=== PATIENT | female | born 1960 | race Caucasian/White ===

== ENCOUNTER 2019-09-22 16:43 | Outpatient (CLI) | payer OTHER, SELFPAY ==
--- NOTE | ~2019-09-22 | MM_ITS ---
EXAMINATION: MM screening tuan BI w aditya HISTORY: Screening mammogram TECHNIQUE: Craniocaudal and mediolateral oblique 3-D tomosynthesis images were obtained and synthetic 2-D images were generated. CAD analysis was submitted and interpreted. COMPARISON: 09/03/2017 bilateral digital screening mammogram BREAST PARENCHYMAL COMPOSITION: There are scattered areas of fibroglandular density. FINDINGS: There is no evidence of suspicious mass, calcification, or architectural distortion to sugg est malignancy in either breast. There has been no suspicious interval change. IMPRESSION: 1. No mammographic evidence of malignancy. 2. Recommend routine screening mammography in one year. BI-RADS Category 1: Negative Reviewed, dictated and finalized at location A. ESTATE LOAN PROCESSOR
== END 2019-09-22 16:44 | disposition home or self-care (01) ==
LOC: ANHIMG 16:48
DX: Z12.31 Encounter for screening mammogram for malignant neoplasm of breast (principal)
CPT/HCPCS: 77063; 77067

== ENCOUNTER 2020-12-11 15:50 | Outpatient (CLI) | payer OTHER, SELFPAY ==
--- NOTE | ~2020-12-11 | MM_ITS ---
EXAMINATION: MM screening tuan BI w aditya HISTORY: Screening TECHNIQUE: Craniocaudal and mediolateral oblique 3-D tomosynthesis images were obtained and synthetic 2-D images were generated. CAD analysis was submitted and interpreted. COMPARISON: Comparison to multiple prior studies sequentially, with oldest reviewed study dated 09/03. BREAST PARENCHYMAL COMPOSITION: There are scattered areas of fibroglandular density. FINDINGS: There is no evidence of suspicious mass, calcification, or architectural distortion to sugg est malignancy in either breast. There has been no suspicious interval change. IMPRESSION: 1. No mammographic evidence of malignancy. 2. Recommend routine screening mammography in one year. BI-RADS Category 1: Negative Reviewed, dictated and finalized at location A.
== END 2020-12-11 15:51 | disposition home or self-care (01) ==
PROVIDERS: Visit Provider Student in an Organized Health Care Education/Training Program
DX: Z12.31 Encounter for screening mammogram for malignant neoplasm of breast (principal)
CPT/HCPCS: 77063; 77067

== ENCOUNTER 2022-01-03 07:48 | Outpatient (CLI) | payer OTHER, SELFPAY ==
--- NOTE | ~2022-01-03 | MM_ITS ---
EXAMINATION: MM screening tuan BI w aditya HISTORY: Screening mammogram TECHNIQUE: Craniocaudal and mediolateral oblique 3-D tomosynthesis images were obtained and synthetic 2-D images were generated. CAD analysis was submitted and interpreted. COMPARISON: 12/2020, 09/22/2019, 09/03/2017 bilateral screening mammogram examinations BREAST PARENCHYMAL COMPOSITION: There are scattered areas of fibroglandular density. FINDINGS: There is no evidence of suspicious mass, calcification, or architectural distortion to sugg est malignancy in either breast. There has been no suspicious interval change. IMPRESSION: 1. No mammographic evidence of malignancy. 2. Recommend routine screening mammography in one year. BI-RADS Category 1: Negative Reviewed, dictated and finalized at location A.
== END 2022-01-03 07:49 | disposition home or self-care (01) ==
DX: Z12.31 Encounter for screening mammogram for malignant neoplasm of breast (principal)
CPT/HCPCS: 77063; 77067

== ENCOUNTER 2022-10-03 13:47 | Emergency (ER) | payer OTHER, SELFPAY ==
[2022-10-03] VITALS (8 sets, daily range): BP systolic 112–130; BP diastolic 64–73; PULSE 60–85; RESP 12–20; TEMP 36.8; O2SAT 99–100
--- NOTE | ~2022-10-03 | XR_ITS ---
EXAMINATION: XR chest 2V 10/03/2022 14:11 INDICATION: Chest pain PROCEDURE: 2 view chest COMPARISON: 11/08/2017 FINDINGS: The lungs are clear. The cardiomediastinal silhouette is within normal limits. There are no pleural effusions. There is no pneumothorax suspected. IMPRESSION: 1: NO ACUTE CARDIOPULMONARY DISEASE. Reviewed, dictated and finalized at location B. KER METAL BASE
--- NOTE | 2022-10-03 13:50 | ECG_ITS ---
Measurements Intervals [place] Rate: 79 P: 9 [place]: 125 QRS: 17 QRSD: 89 T: 49 QT: 368 QTc: 423 Interpretive Statements SINUS RHYTHM MODERATE ST DEPRESSION [0.05+ mV ST DEPRESSION] ABNORMAL ECG NO PREVIOUS ECG AVAILABLE FOR COMPARISON Electronically Signed On 10-03-2022 15:41:54 CREDIT CARD ANALYST by Keaton Weeks M.D.
[2022-10-03 14:14] LABS: Basophils Percent Auto 0.7 % (0.2-1.2); Eosinophils Absolute Auto 0.1 K/mm3 (0-0.3); Eosinophils Percent Auto 2.2 % (0-4.4); Hematocrit 42.2 % (37.0-47.0); Hemoglobin 13.9 g/dL (12.0-15.0); Immature Granulocyte Absolute 0.02 K/mm3 (0.00-0.031); Immature Granulocyte Percent A 0.4 % (0-0.5); Lymphocytes Absolute Auto 1.38 K/mm3 (0.9-3.2); Lymphocytes Percent Auto 25.1 % (18.3-44.2); Mean Corpuscular HGB Conc 32.9 g/dl (32-36); Mean Corpuscular Hemoglobin 29.1 pg (26-34); Mean Corpuscular Volume 88.5 fl (80-100); Mean Platelet Volume 10.4 fl (7.4-10.4); Monocytes Absolute Auto 0.3 K/mm3 (0.1-0.6); Neutrophils Absolute Auto 3.6 K/mm3 (1.3-6.7); Neutrophils Percent Auto 65.6 % (45.5-73.1); Platelet Count Result 387 k/mm3 (150-375); Red Blood Count 4.77 M/mm3 (4.2-5.4); Red Cell Distribution Width 12.9 % (11.5-14.5); White Blood Count 5.5 K/mm3 (4.5-10.0)
[2022-10-03 14:24] LABS: Prothrombin Time 12.8 Seconds (11.1-14.7)
[2022-10-03 14:25] LABS: Partial Thromboplastin Time 27.9 SECONDS (22.3-36.8)
[2022-10-03 14:28] LABS: Alanine Aminotransferase 22 U/L (6-35); Albumin Level 4.8 g/dL (3.5-5.1); Alkaline Phosphatase 74 U/L (38-126); Anion Gap 9 mmol/L (8-16); Aspartate Amino Transferase 22 U/L (14-36); Bilirubin,Total 0.8 mg/dL (0.2-1.3); Blood Urea Nitrogen 11 mg/dL (7-17); Calcium 9.7 mg/dL (8.4-10.2); Carbon Dioxide 25 mmol/L (22-30); Chloride 103 mmol/L (98-107); Estimated CRCL calculation 96 ml/min; Estimated Glomerular Filt Rate > 60; Glucose 103 mg/dL (65-110); Lipase 63 U/L (23-300); Potassium 3.3 mmol/L (3.4-5.0); Sodium 137 mmol/L (137-145)
[2022-10-03 14:40] LABS: Troponin I < 0.012 ng/mL (0.000-0.034)
--- NOTE | 2022-10-03 16:16 | ED.CHESTPAIN ---
HPI - Chest Pain General Chief Complaint: Chest Pain Stated Complaint: fluttering under left breast Time Seen by Provider: 10/03/22 15:47 History of Present Illness HPI narrative: Patient is a 62-year-old female who presents ER with some chest discomfort. She reports 2 times today she had fluttering that was occurring beneath her left breast. She put her hand that she could feel it moving. No radiation of discomfort into his shoulder or jaw or back. No dyspnea. Patient reports she became nervous because she had COVID diagnosed 15 days ago. She has had a couple waves of feeling very tired. She has been feeling slightly tired today. No runny nose or sore throat at this time. No productive cough. No history of heart disease. No high blood pressure/cholesterol/diabetes. Related Data Allergies Allergy/AdvReac Type Severity Reaction Status Date / Time No Known Allergies Allergy Verified 10/03/22 16:19 Review of Systems Review of Systems: All systems reviewed & are unremarkable except as noted in HPI and below Constitutional: Constitutional: Denies chills, Denies fatigue and Denies fever(s) ENT: Denies nasal congestion and Denies sore throat Cardiovascular: Cardiovascular: Reports chest pain (Pulmflutters), Denies rapid heart rate and Denies radiating jaw, neck or arm pain Respiratory: Respiratory: Denies cough and Denies dyspnea Gastrointestinal: Gastrointestinal: Denies abdominal pain, Denies nausea and Denies vomiting Exam Narrative: GENERAL: Well-appearing, well-nourished, and in no acute distress. HEAD: Normocephalic, atraumatic. NECK: Supple. CHEST: Clear to auscultation. No respiratory distress. HEART: Regular rate and rhythm. Normal peripheral pulses. ABDOMEN: Soft, nontender, nondistended. EXTREMITIES: Normal range of motion. No edema. SKIN: Warm, dry, no rash. NEURO: Alert and oriented x3. PSYCH: Normal mood and affect. Course Course Emergency Course: Patient resting comfortably. Informed of results. Symptoms are quite atypical. Recommend follow-up with PCP. Also discussed slight ST segment depression on EKG. Recommend she get an outpatient stress test discussed this with her PCP. She verbalized understanding of this. Vital Signs Vital signs: Vital Signs Temperature 98.2 F 10/03/22 13:58 Pulse Rate 85 10/03/22 13:58 Respiratory Rate 16 10/03/22 13:58 Blood Pressure 130/69 10/03/22 13:58 Pulse Oximetry 100 10/03/22 13:58 Oxygen Delivery Room Air 10/03/22 13:58 Temperature 98.2 F 10/03/22 13:58 Pulse Rate 60 10/03/22 17:32 Respiratory Rate 18 10/03/22 17:32 Blood Pressure 114/64 10/03/22 17:32 Pulse Oximetry 100 10/03/22 17:32 Oxygen Delivery Room Air 10/03/22 13:58 MDM - Chest Pain Lab Data 10/03/22 13:57 10/03/22 13:57 Labs: Lab Results 10/03/22 10/03/22 10/03/22 Range/Units 13:57 13:57 13:57 WBC 5.5 (4.5-10.0) K/mm3 RBC 4.77 (4.2-5.4) M/mm3 Hgb 13.9 (12.0-15.0) g/dL Hct 42.2 (37.0-47.0) % MCV 88.5 (80-100) fl MCH 29.1 (26-34) pg MCHC 32.9 (32-36) g/dl RDW 12.9 (11.5-14.5) % Plt Count 387 H (150-375) k/mm3 MPV 10.4 (7.4-10.4) fl Immature Gran % (Auto) 0.4 (0-0.5) % Neut % (Auto) 65.6 (45.5-73.1) % Lymph % (Auto) 25.1 (18.3-44.2) % Park % (Auto) 6.0 (2.6-8.5) % Eos % (Auto) 2.2 (0-4.4) % Baso % (Auto) 0.7 (0.2-1.2) % Lymph # (Auto) 1.38 (0.9-3.2) K/mm3 Park # (Auto) 0.3 (0.1-0.6) K/mm3 Eos # (Auto) 0.1 (0-0.3) K/mm3 Baso # (Auto) 0.0 (0.0-0.1) K/mm3 Abs Immat Gran (auto) 0.02 (0.00-0.031) K/mm3 Absolute Neuts (auto) 3.6 (1.3-6.7) K/mm3 Absolute Nucleated RBC 0.0 (0.0-0.012) K/mm3 Nucleated RBC % 0.0 (0.0-0.2) % PT 12.8 (11.1-14.7) Seconds INR 1.0 APTT 27.9 (22.3-36.8) SECONDS Sodium 137 (137-145) mmol/L Potassium 3.3 L (3.4-5.0) mmol/L Chloride 103 (98-
[2022-10-03] MEDS: ASPIRIN 81 MG CHEWABLE TABLET 324 MG PO (16:20)
[2022-10-03 17:41] LABS: Troponin I < 0.012 ng/mL (0.000-0.034)
== END 2022-10-03 18:52 | disposition home or self-care (01) ==
PROVIDERS: Emergency Provider Emergency Medicine; PCP Student in an Organized Health Care Education/Training Program
DX: R07.9 Chest pain, unspecified (principal); Z86.16 Personal history of COVID-19; R94.31 Abnormal electrocardiogram [ECG] [EKG]
CPT/HCPCS: 36415; 71046; 80053; 83690; 84484; 85025; 85610; 85730; 93005; 99284; A9270

== ENCOUNTER 2023-03-06 07:11 | Outpatient (CLI) | payer OTHER, SELFPAY ==
--- NOTE | ~2023-03-06 | MM_ITS ---
EXAMINATION: MM screening tuan BI w aditya HISTORY: Screening mammogram TECHNIQUE: Craniocaudal and mediolateral oblique 3-D tomosynthesis images were obtained and synthetic 2-D images were generated. CAD analysis was submitted and interpreted. COMPARISON: 01/03/2022, 12/11/2020, 09/22/2019 BREAST PARENCHYMAL COMPOSITION:There are scattered areas of fibroglandular density. FINDINGS: No suspicious mass, calcification, or architectural distortion are identified in either leena ast to suggest malignancy. There has been no suspicious interval change. IMPRESSION: No mammographic evidence of malignancy. Recommend routine screening mammography in one year. BI-RADS Category 1: Negative Reviewed, dictated and finalized at location .
== END 2023-03-06 07:12 | disposition home or self-care (01) ==
PROVIDERS: PCP Student in an Organized Health Care Education/Training Program
DX: Z12.31 Encounter for screening mammogram for malignant neoplasm of breast (principal)
CPT/HCPCS: 77063; 77067

== ENCOUNTER 2023-07-10 00:46 | Day surgery (SDC) | payer OTHER, SELFPAY ==
[2023-06-24 08:25] VITALS: BMI 28.1
--- NOTE | 2023-07-08 09:01 | SUR.PREOP ---
Patient called regarding upcoming procedure. Reviewed preop instructions, appointment times, and procedure prep.
--- NOTE | 2023-07-09 12:00 | PM.HPGS ---
History of Present Illness History of Present Illness Consent: Risks, benefits, and alternatives have been discussed and questions answered. Patient agrees to proceed with procedure. Chief complaint: neoplasm screening Narrative: Rika Granados is a 63 year old female referred for colon cancer screening. She her last colonoscopy was 5 years ago. She has a history of polyps. Review of Systems Review of Systems: All systems reviewed & are unremarkable except as noted in HPI and below PMFSH Social History Social History Smoking status: Never smoker Alcohol intake: never Substance use: never Substance use type: does not use Living arrangements: with family Spiritual care concerns: No Meds Home Medications and Allergies Home Medications Medication Instructions Recorded Confirmed Type No Home Medications 06/24/23 06/24/23 History Allergies Allergy/AdvReac Type Severity Reaction Status Date / Time No Known Allergies Allergy Verified 06/24/23 08:24 Exam Const: General: alert Orientation/consciousness: patient oriented x3 Resp: Auscultation: clear to auscultation bilaterally Cardio: Rhythm: regular rhythm GI: GI Palp: Yes Soft to palpation and No Tenderness to palpation present (GI) Neuro: General: patient oriented x3 Assessment and Plan Assessment and plan (1) Colon cancer screening: Code(s): Z12.11 - Encounter for screening for malignant neoplasm of colon Status: Acute Assessment and Plan: Colonoscopy with possible biopsy or polypectomy or cautery or injection of substances.
[2023-07-10 06:20] VITALS: BP 119/71; PULSE 86; RESP 18; TEMP 36; O2SAT 99; BMI 28.2
[2023-07-10] MEDS: LACTATED RINGERS 1,000 ML 150 ML IV CONT (06:31)
--- NOTE | 2023-07-10 07:16 | WPDANESEPPF ---
Anes - Initial Pre Proc Eval Procedure: Operation Date: 07/10/23 07:30 Proposed Procedures p Screening Colonoscopy - Vitor Burt MD Date/Time: 07/10/23 07:16 Surgeon: Vitor Burt MD Pre Op Diagnosis: neoplasm screening Patient Data Age: 63 Gender: F Height: 1.73 m Weight: 84.2 kg Last Vital Signs Temp 96.8 F L 07/10/23 06:20 Pulse 86 07/10/23 06:20 Resp 18 07/10/23 06:20 BP 119/71 07/10/23 06:20 Pulse Ox 99 07/10/23 06:20 O2 Del Method Room Air 07/10/23 06:20 Allergies Allergy/AdvReac Type Severity Reaction Status Date / Time No Known Allergies Allergy Verified 06/24/23 08:24 Home Medications Medication Instructions Recorded Confirmed Type No Home Medications 06/24/23 06/24/23 History Patient hx anesthesia problems: none Family hx anesthesia problems: none Results Review: All pre-operative results and documents have been reviewed as part of the pre-operative evaluation. [facility] Social History Social History Smoking status: Never smoker Alcohol intake: never Substance use: never Substance use type: does not use Living arrangements: with family Spiritual care concerns: No Anes - Eval Final PreProcedure Day of Procedure 07/10/23 07:16 Patient weight: normal Heart: regular rate and rhythm Lungs: clear to auscultation Airway: Mallampati scale class II Neurological: alert and oriented Last oral intake: >/= 8 hours ASA classification: II Emergent: no Anesthetic plan: proceed Anesthesia type and monitoring: general GIVS and standard monitoring Results Review: All pre-operative results and documents have been reviewed as part of the pre-operative evaluation. Informed Consent: The patient's anesthetic plan and its attendant risks and benefits were discussed with the patient/family/POA. Questions were solicited and answers provided to the satisfaction of the patient/family/POA.
[2023-07-10 07:41] VITALS: BP 82/52; PULSE 67; RESP 20; O2SAT 95
[2023-07-10 07:51] VITALS: BP 103/58; PULSE 69; RESP 20; O2SAT 99
[2023-07-10 08:01] VITALS: BP 110/73; PULSE 67; RESP 20; O2SAT 100
== END 2023-07-10 08:07 | disposition home or self-care (01) ==
PROVIDERS: PCP Student in an Organized Health Care Education/Training Program; Visit Provider Internal Medicine Gastroenterology
PROC: 0DJD8ZZ Inspection of Lower Intestinal Tract, Via Natural or Artificial Opening Endoscopic (ICD-10-PCS; CPT 45378; principal; 2023-07-10 07:30)
DX: Z12.11 Encounter for screening for malignant neoplasm of colon (principal); Z86.010 Personal history of colon polyps
CPT/HCPCS: 45378; J2704; J7120

== ENCOUNTER 2024-04-29 14:42 | Outpatient (CLI) | payer OTHER, SELFPAY ==
--- NOTE | ~2024-04-29 | MM_ITS ---
EXAMINATION: MM screening tuan BI w aditya HISTORY: Screening TECHNIQUE: Craniocaudal and mediolateral oblique 3-D tomosynthesis images were obtained and synthetic 2-D images were generated. CAD analysis was submitted and interpreted. COMPARISON: Comparison to multiple prior studies sequentially, with oldest reviewed study dated 09/03. BREAST PARENCHYMAL COMPOSITION: Not dense: There are scattered areas of fibroglandular density. FINDINGS: There is no evidence of suspicious mass, calcification, or architectural distortion to sugg est malignancy in either breast. There has been no suspicious interval change. IMPRESSION: 1. No mammographic evidence of malignancy. 2. Recommend routine screening mammography in one year. BI-RADS Category 1: Negative Reviewed, dictated and finalized at location B.
== END 2024-04-29 14:43 | disposition home or self-care (01) ==
LOC: ANHIMG 14:44
PROVIDERS: PCP Student in an Organized Health Care Education/Training Program
DX: Z12.31 Encounter for screening mammogram for malignant neoplasm of breast (principal)
CPT/HCPCS: 77063; 77067

== ENCOUNTER 2025-05-26 07:36 | Outpatient (CLI) | payer OTHER, SELFPAY ==
--- NOTE | ~2025-05-26 | MM_ITS ---
EXAMINATION: MM screening tuan BI w aditya HISTORY: Screening TECHNIQUE: Craniocaudal and mediolateral oblique 3-D tomosynthesis images were obtained and synthetic 2-D images were generated. CAD analysis was submitted and interpreted. COMPARISON: 03/06/2023 BREAST PARENCHYMAL COMPOSITION: There are scattered areas of fibroglandular density. FINDINGS: There is no evidence of suspicious mass, calcification, or architectural distortion to suggest malignancy. There has been no suspicious interval change. IMPRESSION: 1. No mammographic evidence of malignancy. Recommend routine screening mammography in one year. BI-RADS Category 2: Benign finding(s) Reviewed, dictated and finalized at location Q. IMPRESSION: 1. No mammographic evidence of malignancy. Recommend routine screening mammogra phy in one year. BI-RADS Category 2: Benign finding(s)
--- OUTSIDE RECORDS SUMMARY | 2025-05-26 07:40 | XMS_ITS | Encounter Summary ---
Author Organization [facility] Address [address] [place] [id number] Care Team Providers Care Recycling Worker Name Role Phone Mayito Tinoco DO Primary Care Provider + Encounter Details Date Type Department Care Team (Late Contact Info) Description 03/13/2023 [place] [employer] Message Enc [facility] Family & Internal [address] [phone] Mayito Tinoco DO [address] [place] [address] [phone] Mammogram Results Social History Tobacco Use Types Packs/Day Years Used Date Smoking Tobacco: Never Smokeless Tobacco: Never Alcohol Use Standard Drinks/Week Comments No 0 (1 standard drink = 0.6 oz pur e alcohol) AUDIT-C Answer Date Recorded Frequency of Alcohol Consumption Never 03/15/2019 Average Number of Drinks Not on file 019 Frequency of Binge Drinking Not on file 01/2019 PHQ-2 Answer Date Recorded PHQ-2 Score - If the patient scores above 3, please move on to questions 3-9 0 03/28/2022 Comments No Sex and Gender Information Value Date Recorded Sex Assigned at Not on file Legal Sex Female 10:10 AM CDT Gender Identity Not on file Sexual Orientation Not on file 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 Not on file Not on file documented as of this encounter Plan of Treatment Upcoming Encounters Date Type Department Care Team (Late Contact Info) Description 06/16/2025 7:20 AM MINK SLICER Office Visit [facility] Family & Internal Medicine [address] [phone] Mayito Tinoco DO [address] [place] [phone] documented as of this encounter Visit Diagnoses Not on filedocumented in this encounter Additional Health Concerns Assessment Noted Time PHQ-9 Depression Total Score: 2 11/16/19 21 11:20 AM CDT documented as of this encounter Care Teams Recycling Worker Relationship Specialty Start Date End Date Mayito Tinoco DO [address] [place] [phone] PCP - General FAMILY PRACTICE 01/05/19 documented as of this encounter
--- OUTSIDE RECORDS SUMMARY | 2025-05-26 07:40 | XMS_ITS | Encounter Summary ---
Author Organization [facility] Address [address] [place] [id number] Care Team Providers Care Press Secretary Name Role Phone Mayito Tinoco Primary Care Provider + Encounter Details Date Type Department Care Team (Late Contact Info) Description 08/29/2021 [place] [employer] Message Enc [facility] Family & Internal Medicine [address] [phone] Yoanna Pierce APNP [address] [place] [address] [phone] Right Eyelid swollen Social History Tobacco Use Types Packs/Day Years [...] please move on to questions 3-9 0 11/15/2020 Comments No Sex and Gender Information Value Date Recorded Sex Assigned at Not on file Legal Sex Female 10:10 AM CDT Gender Identity Not on file Sexual Orientation Not on file 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 Not on file Not on file documented as of this encounter Plan of Treatment Upcoming Encounters Date Type Department Care Team (Late Contact Info) Description 06/16/2025 7:20 AM VICE PRESIDENT SALES Office Visit [facility] Family & Internal Medicine [address] [phone] Mayito Tinoco DO [address] [place] [phone] documented as of this encounter Visit Diagnoses Not on filedocumented in this encounter Additional Health Concerns Assessment Noted Time PHQ-9 Depression Total Score: 2 11/16/19 21 11:20 AM CDT documented as of this encounter Care Teams Press Secretary Relationship Specialty Start Date End Date Mayito Tinoco DO [address] [place] [phone] PCP - General FAMILY PRACTICE 01/05/19 documented as of this encounter
--- OUTSIDE RECORDS SUMMARY | 2025-05-26 07:40 | XMS_ITS | Clinical Summary ---
Author Organization [facility] Address [address] [place] [address] Care Team Providers Care Expander Machine Operator Name Role Phone Mayito Tinoco DO Primary Care Provider + Allergies No known active allergies Medications Multiple Vitamin (MULTIVITAMIN ADULT OR) Active Vitamin K, Phytonadione, 100 MCG Tab Active Vitamin D3 (CHOLECALCIFEROL ) 50 mcg tablet Take 1 tablet (2,000 Units total) by mouth daily. Active escitalopram (LEXAPRO) 20 MG tabletIndication s:Anxiety Take 1 tablet (20 mg total) by mouth daily. 30 tablet 2 04/21/2025 Active Active Problems Problem Noted Date Diagnosed Date Irritable bowel syndrome with diarrhea 0 Anxiety 03/06/2020 BMI 27.0-27.9,adult 03/06/2020 Resolved Problems Problem Noted Date Diagnosed Date Resolved Date Diarrhea 01/03/2020 03/28/2022 Colon polyps 03/15/2019 02/19/2024 Encounters Date Type Department Care Team Description 04/17/2025 Telephone [facility] Family & Internal Medicine [address] [phone] Mayito Tinoco DO Advice from Last 3 Months Immunizations Immunization Administration Dates Next Due AFLURIA QUAD >36 MONTHS (MUL TI-DOSE VIAL) 05/30/2019 Arexvy Respiratory Syncytial Virus (RSV, adjuvanted) 0.5 mL, PF 08/06/2023 Dtap (Acel-Immune) 04/12/2010 Dtp 04/12/2010 FLUCELVAX (ccIIV3, TRIVALENT, 0.5mL) 04/15/2024 Flulaval Quad (Multi-Dose Vial) 05/30/2018 Fluzone 6 Months+ Quad (0.5 mL Prefilled Syringe) 05/16/2020 Hepatitis B 10/11/2010,05/13/2010,04/12/2010 Influenza (Generic) 05/30/2019,05/30/2018,2013 Influenza Adult (Generic) 05/15/2023,,05/21/2021,2018,05/30/2018 Influenza Virus, Split 6-35 Mo 06/18/2012,2010,05/09/2010 MMR (MMRII) 03/15/2019 MODERNA COVID-19 BIVALENT (1 2+), MRNA, LNP-S, PF 05/02/2022 PFIZER COVID-19 (ECHEVERRIA CAP), MRNA, LNP-S, PF, 30 MCG/0.3 ML DEEPALI-SUCROSE, IM 12/06/2021 PFIZER COVID-19 (ORIGINAL FORMULATION, PURPLE CAP) mRNA, LNP-S, PF, 30 MCG/0.3 ML DOSE 06/07/2021,09/21/2020,08/31/2020 Shingrix 02/08/2021,12/04/2020 Td, Adsorbed, Preservative F ree, Adult Use, Lf Unspecified 04/12/2010 Tdap (Boostrix) 02/07/2019 Tdap (Generic) 02/07/2019,06/18/2012,04/10/2012 Family History Medical History Relation Comments Diabetes Brother 1 Hypertension Brother 2 Hypertension Brother 3 Diabetes Father Stroke Father Heart Disease Maternal Aunt 1 Heart Disease Maternal Aunt 2 CAD/stent No Known Problems Maternal Grandfather No Known Problems Maternal Grandmother Heart Disease Mother Hypertension Mother No Known Problems Paternal Grandfather No Known Problems Paternal Grandmother No Known Problems Sister Relation Status Comments Brother 1 Brother 2 Brother 3 Father Maternal Aunt 1 Maternal Aunt 2 Maternal Grandfather Maternal Grandmother Mother Paternal Grandfather Paternal Grandmother Sister Social History Tobacco Use Types Packs/Day Years Used Date Smoking Tobacco: Never Passive Smoke Exposure: Never Smokeless Tobacco: Never Alcohol Use Standard Drinks/Week Comments No 0 (1 standard drink = 0.6 oz pur e alcohol) AUDIT-C Answer Date Recorded Frequency of Alcohol Consumption Never 03/15/2019 Average Number of Drinks Not on file 019 Frequency of Binge Drinking Not on file 01/2019 PHQ-2 Answer Date Recorded Patient Health Questionnaire-2 Score 3 02/19/2024 Comments No Sex and Gender Information Value Date Recorded Sex Assigned at Not on file Legal Sex Female 10:10 AM CDT Gender Identity Not on file Sexual Orientation Not on file 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 Not on file Not on file Last Filed Vital Signs Vital Sign Reading Time Taken Comments Blood Pressure 120/78 04/22/2024 7:48 AM CDT Pulse 53 04/22/2024 7:48 AM CDT Temperature 36.4 C (97.5 F) 04/22/2024 7:48 AM CDT Respiratory Rate 16 04/22/2024 7:48 AM CDT Oxygen Saturation 98% 04/22/2024 7:48 AM CDT Inhaled Oxygen Concentration - - Weight 85.5 kg (188 lb 8 oz) 04/22/2024 7:48 AM CDT Height 172.7 cm (5' 8) 04/22/2024 7:48 AM CDT Body Mass Index 28.66 04/22/2024 7:48 AM CDT Plan of Treatment Upcoming Encounters Date Type Department Care Team (Late st Contact Info) Description 06/16/2025 7:20 AM PIPE LINER Office Visit [facility] Family & Internal Medicine [id number] [place] [phone] Mayito Tinoco, [address] [place] [address] Health Maintenance Due Date Last Done Comments Pneumococcal Vaccine: 50+ Years (1 of 1 - PCV) 2011 PHQ-2 (Physician [place]) 08/10/2024 02/19/2024 COVID-19 Vaccine ( season) 2025 05/15/2023, 05/02/2022, 12/06/2021, Additional history exists Annual Physical 04/22/2025 04/22/2024, 03/11, 03/28/2022, Additional history exists Mammogram Screening 04/29/2025 04/29/2024, 03/06/2023, 12/11/2020, Additional history exists Influenza Adult (#1) 2025 04/15/2024, 05/15/2023, 05/02/2022, Additional history exists Cervical Cancer Screening Pap Smear (Age 30 to 64) Every 3 Years 05/12/2027 05/12/2024, 09/15/2019 Colorectal Cancer Screening Colonoscopy (10 Years) 07/10/2028 07/10/2023 DTaP, Tdap and Td Vaccines (7 - Td or Tdap) 02/07/2029 02/07/2019, 02/07/2019, 06/18/2012, Additional history exists Cervical Cancer Screening Pap with HPV Testing (Age 30 to 64) Every 5 Years 05/12/2029 05/12/2024, 09/15/2019, 09/15/2019 Cervical Cancer Screening with HPV 05/12/2029 Zoster Vaccines Completed 02/08/2021, 12/04/2020 Hepatitis C Completed 03/26/2021 RSV Immunization or 60+ Years Completed 08/06/2023 Hepatitis A Vaccines Aged Out No long er eligible based on patient's age to complete this topic Meningococcal B Vaccine Aged Out No l onger eligible based on patient's age to complete this topic Meningococcal Vaccine Aged Out No esthela genie eligible based on patient's age to complete this topic RSV Immunizations Under 20 Months Aged Out No longer eligible based on patient's age to complete this topic Procedures Procedure Name Priority Date/Time Associated Diagnosis Comments MAMMOGRAM GENERIC (SCAN ORDER) 04/29/2024 COLONOSCOPY GENERIC (SCAN ORDER) 07/10/2023 HEPATITIS C ANTIBODY Routine 03/26/2021 12:34 PM CDT Encounter for preventative adult health care examination Need for hepatitis C screening test OUTSIDE CYTOPATH CERV/VAG INTERPRET (PAP) 09/15/2019 from Last 3 Months or Most Recently Relevant to Health Maintenance Results * MAMMOGRAM GENERIC (SCAN ORDER) (04/29/2024) Anatomical Region Laterality Modality Other 04/29/2024 [facility] Scanned SCANNING Final Resu lt * COLONOSCOPY GENERIC (07/10/2023) 07/10/2023 [facility] Scanned SCANNING Final Resu lt * HEPATITIS C ANTIBODY (03/26/2021 12:34 PM CDT) HEPATITIS C AB <0.1 0.0 - 0.9 s/co ratio [facility] 1 Comment: Negative: < 0.8 Indeterminate: 0.8 - 0.9 Positive: > 0.9 The CDC recommends that a positive HCV antibody result be followed up with a HCV Nucleic Acid Amplification test ([id number]). 03/26/2021 12:3 4 PM CDT 03/27/2021 Narrative [facility] - 03/27/2021 12:09 PM CDT Performed at: [facility] [id number] Double End Tenoner Operator: Alexander Alarcon PhD, Phone: [phone] Mayito Tinoco DO LABORATORY Final Re sult Performing Organization Address [facility] Co de Phone Number [facility] [address] [place] [address] [facility] 1 * PAP SMEAR WITH HPV (09/15/2019) 09/15/2019 [facility] Scanned SCANNING Final Resu lt from Last 3 Months or Most Recently Relevant to Health Maintenance Insurance AETNA [facility] AETNA Care Teams Expander Machine Operator Relationship Specialty Start Date End Date Mayito Tinoco DO [address] [place] [phone] PCP - General FAMILY PRACTICE 01/05/19
--- OUTSIDE RECORDS SUMMARY | 2025-05-26 07:40 | XMS_ITS | Clinical Summary ---
Author Organization [facility] Address [address] [place] [address] Care Team Providers Care Quiller Hand Name Role Phone Mayito Tinoco Dieudonne TEIXEIRA Primary Care Provider + Source Comments [facility],non-owned Affiliates and Associated Physician Practices is amultiple site organization consisting of ambulatory clinics and hospital sitesin [place], [place], [place] and [place]. This disclosure is being madepursuant to the Care Everywhere program and may not contain all information available regarding this patient. Last updated 18.[facility] Allergies No known active allergies Medications * Be aware that medications may not be up to date on this document. Alwaysverify current medications with the patient. escitalopram (Lexapro) 20 MG tablet Take 1 (one) tablet by mouth once daily 02/08/2024 Active Cholecalciferol 50 MCG (1999 UT) Take 1 (one) tablet by mouth once daily Active Vitamin K, Phytonadione, 100 MCG Active Active Problems No known active problems Immunizations Immunization Administration Dates Next Due INFLUENZA VACCINE 05/30/2019,05/30/2018 Family History Medical History Relation Name Comments CAD (Coronary Artery Disease) Father stoke Diabetes - Type 2 Father Hypertension Mother Cancer - Breast Paternal Aunt Relation Name Status Comments Father Mother Paternal Aunt Social History Tobacco Use Types Packs/Day Years Used Date Smoking Tobacco: Never Smokeless Tobacco: Never Tobacco Cessation:Counseling Given: Not Answered Alcohol Use Standard Drinks/Week Comments Never 0 (1 standard drink = 0.6 oz pur e alcohol) AUDIT-C Answer Date Recorded Frequency of Alcohol Consumption Never 09/15/2019 Average Number of Drinks Not on file 020 Frequency of Binge Drinking Not on file 01/2020 PHQ-2 Answer Date Recorded Patient Health Questionnaire-2 Score 0 05/06/2024 Comments No Sex and Gender Information Value Date Recorded Sex Assigned at Female 12/08/2022 1:06 PM CDT Legal Sex Female 6:14 AM ASSURANCE ANALYST Gender Identity Female 12/08/2022 1:06 PM CDT Sexual Orientation Straight 12/08/2022 1: 06 PM CDT Last Filed Vital Signs Vital Sign Reading Time Taken Comments Blood Pressure 130/78 05/12/2024 8:32 AM CDT Pulse 81 05/30/2022 11:27 AM CDT Temperature 37 C (98.6 F) 05/29/2017 4:54 PM CDT Respiratory Rate 16 05/29/2017 4:54 PM CDT Oxygen Saturation 98% 05/30/2022 11:27 AM CDT Inhaled Oxygen Concentration - - Weight 85.7 kg (189 lb) 05/12/2024 8:32 AM CDT Height 172.7 cm (5' 8) 05/12/2024 8:32 AM CDT Body Mass Index 28.74 05/12/2024 8:32 AM CDT Plan of Treatment Health Maintenance Due Date Last Done Comments COLOGUARD (AGES 45-75) - COLON CA SCREENING 1961 COLON MONITORING 1961 COLONOSCOPY - COLON CA SCREENING 1961 CT COLONOGRAPHY - COLON CA SCREENING 1961 Colorectal Cancer Screening 1961 FIT - COLON CA SCREENING 1961 FLEX SIG - COLON CA SCREENING 1961 HIV SCREENING 1976 DTAP/TDAP/TD VACCINES (1 - Tdap) 1980 PNEUMOCOCCAL VACCINE 50+ (1 of 1 - PCV) 2011 ZOSTER VACCINE (1 of 2) 2011 SCREENING FOR DIABETES 05/12/2024 6, 06/27/2015, 07/04/2014, Additional history exists DEPRESSION SCREENING 08/10/2024 05/12/2024 COVID-19 VACCINE ( season) 2025 05/15/2023, 05/02/2022, 12/06/2021, Additional history exists INFLUENZA VACCINE (#1) 2025 , 05/15/2023, 05/02/2022, Additional history exists MAMMOGRAM 04/29/2026 04/29/2024, 02/08, 03/06/2023, Additional history exists LIPID TESTING 04/22/2029 04/22/2024, 03/10, 03/17/2019, Additional history exists PAP with HPV 05/12/2029 05/12/2024, 09/15/2019 Respiratory Syncytial Virus (RSV) Vaccine Pt: or over 60 yrs (1 - 1-dose 75+ series) 2036 HEPATITIS C SCREENING Completed 03/26/2021 HEPATITIS B VACCINE Aged Out No longe r eligible based on patient's age to complete this topic HIB VACCINE Aged Out No longer eligi ble based on patient's age to complete this topic HPV VACCINE Aged Out No longer eligi ble based on patient's age to complete this topic MENINGOCOCCAL (Group B) VACCINE SHARED DECISION-MAKING Aged Out No longer eligible based on patient's age to complete this topic MENINGOCOCCAL GROUPS A/C/Y/W VACCINE Aged Out No longer eligible based on patient's age to complete this topic Procedures Procedure Name Priority Date/Time Associated Diagnosis Comments HPV DETECTION HIGH RISK BRENDON Routine 05/12/2024 11:53 AM CDT Well woman exam MAMMOGRAM Routine 04/29/2024 11:06 AM CDT HEMOGLOBIN A1C Routine 06/27/2016 6:46 AM ASSURANCE ANALYST LIPID PROFILE Routine 06/27/2016 6:46 AM ASSURANCE ANALYST from Last 3 Months or Most Recently Relevant to Health Maintenance Results * HPV DETECTION HIGH RISK BRENDON (05/12/2024 11:53 AM CDT) High Risk Human Papilloma Result Not detected Not detected 05/19/2024 9:46 AM CDT [facility] High Risk Human Papilloma Interp 05/19/2024 9:46 AM CDT [facility] Comment:High Risk Human Donnie lloma Virus was Not Detected. Pathology/Cytolo gy MISCELLANEOUS SAMPLES / Unknown 05/12/2024 11:53 AM CDT 05/13/2024 12:21 PM CDT Narrative [facility] - 05/19/2024 9:46 AM CDT Nucleic acid isolated from the specimen was analyzed with a nucleic acid amplification test (FDA approved Gen-Probe HPV Assay) to detect high risk human papilloma virus (Types: 16, 18, 31, 33, 35, 39, 45, 51, 52, 56, 58, 59, 66, and 68). The reference range is Not Detected. Comment: These test results should not be used as the sole basis for clinical assessment and treatment of patients. These results should always be correlated with other available data (cytology, histology, and clinical information). us Cheri Richard MD LAB - MICROBIOLOGY O RDERABLES Final Result Performing Organization Address City/State/[facility] Co de Phone Number [facility] [address] [phone] * MAMMOGRAM (04/29/2024 11:06 AM CDT) Anatomical Region Laterality Modality Other us hCeri Richard MD SCANNING ONLY Cici l Result * HEMOGLOBIN A1C (06/27/2016 6:46 AM ASSURANCE ANALYST) Hemoglobin A1c 5.6 4.4 - 6.3 % [facility] Estimated Average Glucose 114 mg/dL [facility] Comment: HbA1c Interpretation: Treatment target values recommended by ADA and other clinical organizations should be used to evaluate metabolic control in patients. Treatment Target Values: Normal : < 5.7% Pre-diabetes: 5.7-6.4% Diabetes: Equal to or greater than 6.5% Reference: [place] [employer] Standards of Care in Diabetes -2014 In patients 70 years and older consider HbA1c target range of 7.0-7.5% Reference: Diabetes Mellitus in Older People: Position Statement on behalf of the International Association of Gerontology and Geriatrics (IAGG), the Diabetes Working Libertarian for Older People (EDWPOP), and the International Task Force of Experts in Diabetes. Benjamin Dewey et al. J [place] [employer]. 2012 Test results diagnostic of diabetes should be repeated for confirmation. The Tosoh G8 assay for the measurement of HbA1c is a National Glycohemoglobin Standardization Program (NGSP)certified method. Results for patients with HbE disease should be interpreted with caution as this hemoglobinopathy has been shown to interfere with the Tosoh G8 assay. Blood specimen (specimen) BLOOD SPECIMEN / Unknown 06/27/2016 6:46 AM ASSURANCE ANALYST 06/27/2016 7:19 AM ASSURANCE ANALYST Historical Provider LAB - CHEMISTRY ORDERABLE S Final Result Performing Organization Address [facility]/ZIP Co de Phone Number [address] [phone] * (ABNORMAL) LIPID PROFILE (06/27/2016 6:46 AM ASSURANCE ANALYST) Cholesterol Total 219(H) <200 mg/dL [facility] HDL 62 >40 mg/dL [facility] Comment: ATP III Classification of HDL Cholesterol: <40 mg/dL: Considered a major risk factor. >60 mg/dL: Considered a negative risk factor. LDL Calculated 130(H) <100 mg/dL [facility] Comment: ATP III Classification of LDL Cholesterol: <100 mg/dL: Optimal 100 - 129 mg/dL: Near Optimal/Above Optimal 130 - 159 mg/dL: Borderline High 160 - 189 mg/dL: High >190 mg/dL: Very High Triglycerides 134 <150 mg/dL [facility] Comment: ATP III Classification of Triglycerides: <150 mg/dL: Normal 150 - 199 mg/dL: Borderline High 200 - 400 mg/dL: High >500 mg/dL: Very High Blood specimen (specimen) BLOOD SPECIMEN / Unknown 06/27/2016 6:46 AM ASSURANCE ANALYST 06/27/2016 7:19 AM ASSURANCE ANALYST Historical Provider LAB - CHEMISTRY ORDERABLE S Final Result Performing Organization Address City/[facility]/[place] [address], [place] [phone] from Last 3 Months or Most Recently Relevant to Health Maintenance Insurance [employer] Care Teams Quiller Hand Relationship Specialty Start Date End Date Mayito Tinoco DO PCP - General 09/15/19
== END 2025-05-26 07:37 | disposition home or self-care (01) ==
PROVIDERS: PCP Student in an Organized Health Care Education/Training Program; Visit Provider Student in an Organized Health Care Education/Training Program
DX: Z12.31 Encounter for screening mammogram for malignant neoplasm of breast (principal)
CPT/HCPCS: 77063; 77067